=== PATIENT | female | born 1945 ===

== ENCOUNTER 2025-01-18 13:26 | Outpatient (CLI) | payer OTHER ==
[~2025-01-18 13:26] MED LIST: CALCIUM1 TAB PO; CATAFLAM50 MG PO; FOLIC ACID1 MG PO; METROTEXATE SC; MULTI-DAY1 TAB PO; OMEGA-3100 MG PO; OMEPRAZOLE10 MG PO; ZOCOR20 MG PO
== END 2025-01-18 13:33 | disposition home or self-care (01) ==
LOC: TOM 13:26
PROVIDERS: ATTEND Internal Medicine
DX: M51.27 Other intervertebral disc displacement, lumbosacral region (principal)